=== PATIENT | female | born 1985 | race Caucasian/White ===

== ENCOUNTER 2016-10-22 23:17 | Emergency (ER) | payer SELFPAY ==
[~2016-10-22] VITALS: Ht 157.5 cm; Wt 59.0 kg
[~2016-10-22 23:17] MED LIST: LEVO500T8 PO; NAPR500T8 PO
[2016-10-22 23:27] VITALS: BP 121/79
[2016-10-22] MEDS ORDERED: NAPR500T8 PO (23:46)
[2016-10-22] MEDS ORDERED: AMOX875T PO (23:46)
--- NOTE | 2016-10-22 23:47 | PHYS DOC ---
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 Patient denies any fever or trismus. Review of Systems Review of Systems Constitutional: Denies fever or chills [] Eyes: Denies change in visual acuity, redness, or eye pain [] HENT: Left upper gum pain and swelling Integument: Denies rash or skin lesions [] Neurologic: Denies headache, focal weakness or sensory changes [] Endocrine: Denies polyuria or polydipsia [] Allergies Allergies Allergies Coded Allergies Type Severity Reaction Last Updated Verified doxycycline Allergy Unknown Anaphylaxis 11/17/15 Yes Physical Exam Physical Exam Constitutional: Well developed, well nourished, no acute distress, non-toxic appearance. [] HENT: Normocephalic, atraumatic, bilateral external ears normal, oropharynx moist, no oral exudates, nose normal. [] Left upper gum with mild induration and erythema along teeth #14,15 and 16 with no fluctuance. Skin: Warm, dry, no erythema, no rash. [] Back: No tenderness, no CVA tenderness. [] Extremities: No tenderness, no cyanosis, no clubbing, ROM intact, no edema. [] Neurologic: Alert and oriented X 3, normal motor function, normal sensory function, no focal deficits noted. [] Psychologic: Affect normal, judgement normal, mood normal. [] Current Patient Data Vital Signs Vital Signs Date Time Temp Pulse Resp B/P Pulse Ox O2 Delivery O2 Flow Rate FiO2 10/22/16 23:27 97.5 86 16 99 Room Air 97.5 EKG EKG [] Radiology/Procedures Radiology/Procedures [] Course & Med Decision Making Course & Med Decision Making Pertinent Labs and Imaging studies reviewed. (See chart for details) Patient is in the ED with a dental abscess with no fluctuance. Discharged with amoxicillin. Follow-up with her own dentist in 1-2 weeks. Provided return precautions and discharged in stable condition. Dragon Disclaimer Dragon Disclaimer This electronic medical record was generated, in whole or in part, using a voice recognition dictation system. Departure Departure Impression: Primary Impression: Dentalgia Additional Impression: Dental abscess Disposition: 01 HOME, SELF-CARE Condition: STABLE Referrals: NO PCP (PCP) Follow-up with your dentist in 1-2 weeks. Patient Instructions: Dental Abscess Additional Instructions: You were seen for dental abscess. Take the prescribed medicines as ordered, ensure you complete your antibiotics. Follow-up with your own dentist in 1-2 weeks. Scripts Naproxen 500 Mg Tablet.dr1 Tab PO BID #60 TAB Ref 1 Prov:JOE GONZALEZ APRN 10/22/16 Amoxicillin 875 Mg Tablet1 Tab PO BID #20 TAB Prov:JOE GONZALEZ APRN 10/22/16 Problem Qualifiers JOE GONZALEZ APRN Oct 22, 2016 23:47
== END 2016-10-23 00:02 | disposition home or self-care (01) ==
LOC: ER 23:17
DX: K04.7 Periapical abscess without sinus (principal); F41.9 Anxiety disorder, unspecified; F31.9 Bipolar disorder, unspecified; F25.9 Schizoaffective disorder, unspecified; F15.10 Other stimulant abuse, uncomplicated; F13.10 Sedative, hypnotic or anxiolytic abuse, uncomplicated; Z88.1 Allergy status to other antibiotic agents
CPT/HCPCS: 99283